=== PATIENT | male | born 2000 | race African-American/Black ===

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

== ENCOUNTER → 2020-12-10 | Outpatient (CLI) | payer OTHER ==
[2020-12-11 15:08] LABS: RUBEOLA IgG ANTIBODY* 35.4 AU/mL (Immune >16.4)
== END ==
LOC: M.LAB 12:07
PROVIDERS: ATTEND Nurse Practitioner Family
DX: Z01.84 Encounter for antibody response examination (principal); Z11.1 Encounter for screening for respiratory tuberculosis